=== PATIENT | male | born 1965 | race Caucasian/White ===

== ENCOUNTER 2017-07-23 21:56 | Emergency (ER) | payer OTHER ==
[~2017-07-23] VITALS: Ht 160 cm; Wt 59.0 kg
[2017-07-23] MEDS ORDERED: ATIVAN0.5 MG ORAL (21:57)
[2017-07-23] MEDS ORDERED: TEGRETOL200 MG PO (21:57)
--- NOTE | 2017-07-23 22:07 | Emergency Room Report ---
History of Present Illness General Chief Complaint: Medical Clearance Source: Patient, EMS Present Illness HPI Is a 52-year-old male who has psychiatric history. He is under arrest for burglary. He was agitated and not cooperative so he was given Versed IM. He is calmer now. He denies suicidal thought homicidal thought. No other injury. Allergies: Coded Allergies: BENZTROPINE (Verified Allergy, Unknown, 07/23/17) CHLORPROMAZINE (Verified Allergy, Unknown, 07/23/17) HALOPERIDOL (Verified Allergy, Unknown, 07/23/17) Patient History Past Medical History: see triage record, old chart reviewed, psych hx Past Surgical History: none Pertinent Family History: none Social History: Reports: smoking Immunizations: other Reviewed Nursing Documentation: PMH: Agreed, PSxH: Agreed Nursing Documentation-PMH History Of Psychiatric Problem: Yes - anxiety Hx Seizures: Yes Review of Systems Eye: Denies: eye pain, blurred vision ENT: Denies: ear pain, nose congestion, throat swelling Respiratory: Denies: cough, shortness of breath Cardiovascular: Denies: chest pain, palpitations Gastrointestinal: Denies: abdominal pain, diarrhea, nausea, vomiting Musculoskeletal: Denies: back pain, joint pain Skin: Denies: rash Neurological: Denies: headache, numbness Endocrine: Denies: increased thirst, increased urine Hematologic/Lymphatic: Denies: easy bruising All Other Systems: negative except mentioned in HPI Physical Exam Vital Signs Date Time Temp Pulse Resp B/P (MAP) Pulse Ox O2 Delivery O2 Flow Rate FiO2 07/23/17 21:54 110 18 101/60 98 Room Air vitals with mild tachycardia Sp02 EP Interpretation: reviewed, normal General Appearance: well appearing, no apparent distress, alert Head: normocephalic, atraumatic Eyes: bilateral eye PERRL, bilateral eye EOMI ENT: hearing grossly normal, normal pharynx Neck: full range of motion, supple, no meningismus Respiratory: chest non-tender, lungs clear, normal breath sounds Cardiovascular #1: regular rate, rhythm, no murmur Gastrointestinal: normal bowel sounds, non tender, no mass, no organomegaly, no bruit, non-distended Musculoskeletal: back normal, gait/station normal, normal range of motion, other - Abrasion to right shoulder Psychiatric: other - Mild agitation. Claiming that he did not do anything Skin: warm/dry Medical Decision Making Diagnostic Impression: Primary Impression: Agitation Additional Impression: Behavior disorder ER Course Patient with underlying psychiatric disorder. Probably worsened by drugs and/ or alcohol. No criteria for 5150. He is medically clear for police custody. Last Vital Signs Date Time Temp Pulse Resp B/P (MAP) Pulse Ox O2 Delivery O2 Flow Rate FiO2 07/23/17 21:54 110 18 101/60 98 Room Air Status: improved Disposition: D/C TO [facility] ENFORCEMENT IN [facility] Condition: Stable Additional Instructions: Followup with your [facility] in 7 days. Return if worse. Abstain from drugs and alcohol. KEELY JEREZ M.D. Jul 23, 2017 22:07
[2017-07-24 04:07] VITALS: BP 101/60
[2017-07-24 04:10] VITALS: BP 101/64
== END 2017-07-23 22:20 ==
LOC: EDBD 21:56 → EMR 22:04
DX: R45.1 Restlessness and agitation (principal); F91.9 Conduct disorder, unspecified; F41.9 Anxiety disorder, unspecified
CPT/HCPCS: 99283

== ENCOUNTER 2017-09-01 14:31 | Emergency (ER) | payer OTHER ==
[~2017-09-01] VITALS: Ht 172.7 cm; Wt 74.8 kg
[~2017-09-01 14:31] MED LIST: ATIVAN0.5 MG ORAL; TEGRETOL200 MG PO
--- NOTE | 2017-09-01 14:53 | Emergency Room Report ---
History of Present Illness General Chief Complaint: Medical Clearance Source: Patient, EMS Present Illness HPI Patient is a 52-year-old male who presented for medical clearance the patient stated that he had some pain to the right side of his face. He reports having the tetanus vaccine approximately one year ago. The patient states that he has prior history of psychiatric disease but is allergy to most antipsychotics. The patient states that he would like some medications for anxiety. Allergies: Coded Allergies: BENZTROPINE (Verified Allergy, Unknown, 07/23/17) CHLORPROMAZINE (Verified Allergy, Unknown, 07/23/17) HALOPERIDOL (Verified Allergy, Unknown, 07/23/17) Patient History Reviewed Nursing Documentation: PMH: Agreed; PSxH: Agreed Nursing Documentation-PMH Past Medical History: No History, Except For Hx Hypertension: Yes History Of Psychiatric Problem: Yes Hx Seizures: Yes Review of Systems All Other Systems: negative except mentioned in HPI Physical Exam Vital Signs Date Time Temp Pulse Resp B/P (MAP) Pulse Ox O2 Delivery O2 Flow Rate FiO2 09/01/17 14:44 98.6 90 16 122/72 98 Room Air 98.6 General Appearance: well appearing, no apparent distress, alert, GCS 15 Head: other - forehead abrasion ENT: hearing grossly normal, normal voice Neck: full range of motion, supple Respiratory: normal inspection, chest non-tender, lungs clear, no respiratory distress, speaking full sentences Cardiovascular #1: normal inspection, regular rate, rhythm Gastrointestinal: normal inspection, normal bowel sounds, non tender, soft Musculoskeletal: normal inspection, back normal, digits/nails normal, no calf tenderness Neurologic: normal inspection, alert, oriented x3, responsive, painting manager III-XII nml as tested, motor strength/tone normal, normal gait Psychiatric: mood/affect normal Skin: no rash, abrasions - right side forehead abrasion, bilateral elbow abrasions Medical Decision Making Diagnostic Impression: Primary Impression: Facial contusion Additional Impression: Abrasion ER Course The patient presented for medical clearance. The differential diagnosis included was not limited to psychosis, head injury, substance abuse, overdose among others. Patient has a benign exam and does not appear to require any further imaging or laboratory testing at this time. The patient was given medications for agitation. The patient was noted to have some abrasion to his forehead which appears very superficial. Patient is awake and alert. Patient was medically cleared for booking. The patient's wound were cleansed and antibiotic ointment was applied. The patient discharged to alf.at the time of discharge patient is awake and alert and oriented Last Vital Signs Date Time Temp Pulse Resp B/P (MAP) Pulse Ox O2 Delivery O2 Flow Rate FiO2 09/01/17 14:44 98.6 90 16 122/72 98 Room Air 98.6 Status: improved Disposition: D/C TO LAW ENFORCEMENT IN [facility] Condition: Stable GinoYared Sep 01, 2017 14:53
[2017-09-01] MEDS ORDERED: LORazepam 0.5mg tab ORAL ONE (15:00)
[2017-09-01] MEDS ORDERED: LORazepam Inj 2mg/ml 1ml IM ONE (15:00)
[2017-09-01] MEDS ORDERED: Bacitracin Oint UD TOPIC ONE (15:00)
[2017-09-01 15:40] VITALS: BP 156/78
[2017-09-01 15:41] VITALS: BP 156/78
== END 2017-09-01 15:45 ==
LOC: EDUNIT# 14:31 → EDBD 14:31 → EMR 14:50
DX: S00.83XA Contusion of other part of head, initial encounter (principal); S50.312A Abrasion of left elbow, initial encounter; S50.311A Abrasion of right elbow, initial encounter; I10 Essential (primary) hypertension; Z88.8 Allergy status to other drugs, medicaments and biological substances; F41.9 Anxiety disorder, unspecified; X58.XXXA Exposure to other specified factors, initial encounter; Y92.9 Unspecified place or not applicable
CPT/HCPCS: 96372; 99283